=== PATIENT | male | born 1965 | race Caucasian/White ===

== ENCOUNTER 2017-01-28 10:46 | Emergency (ER) | payer MEDICAID, OTHER ==
[~2017-01-28] VITALS: Ht 167.6 cm; Wt 76.6 kg
[~2017-01-28 10:46] MED LIST: BUPR150T13 PO; MELO7.5T31 PO; SIMV20TA3 PO
[2017-01-28 12:59] LABS: HEMATOCRIT 45.2 % (39.2-51.8); HEMOGLOBIN 15.2 g/dL (13.7-18.0); WHITE BLOOD COUNT 9.8 x10^3/uL (3.4-10)
[2017-01-28] MEDS ORDERED: ONDANSETRON 2MG/ML, 2ML IVPush ONE (13:00)
[2017-01-28] MEDS ORDERED: SODIUM CHLORIDE 0.9% 1,000ML IVBOLUS ONE (13:00)
[2017-01-28] MEDS ORDERED: SODIUM CHLORIDE FLUSH 10ML SYR IVF ONE (13:00)
[2017-01-28 13:12] LABS: ASPARTATE AMINO TRANSFERASE 20 U/L (15-37); BLOOD UREA NITROGEN 10 mg/dL (7-18)
[2017-01-28] MEDS ORDERED: ONDANSETRON 2MG/ML, 2ML ONE (14:52)
[2017-01-28 15:36] VITALS: BP 130/89
== END 2017-01-28 15:39 | disposition home or self-care (01) ==
LOC: ED 13:10
DX: R63.1 Polydipsia (principal); I10 Essential (primary) hypertension; Z87.891 Personal history of nicotine dependence
CPT/HCPCS: 36415; 71010; 80053; 81003; 82962; 83690; 85025; 93005; 96361; 96374; 99285; J2405; J7030

== ENCOUNTER 2017-06-15 15:48 | Emergency (ER) | payer OTHER ==
[~2017-06-15] VITALS: Ht 152.4 cm; Wt 79.6 kg
[2017-06-15 15:49] VITALS: BP 137/79
[2017-06-15 16:24] LABS: BASOPHILS # (AUTO) 0.06 x10^3/uL (0-0.1); BASOPHILS % (AUTO) 1 % (0-1); EOSINOPHILS # (AUTO) 0.51 x10^3/uL (0-0.4); EOSINOPHILS % (AUTO) 5 % (1-7); LYMPHOCYTES # (AUTO) 3.53 x10^3/uL (1-3.4); LYMPHOCYTES % (AUTO) 32 % (22-44); MD NO; MEAN CORPUSCULAR HGB CONC 33.6 g/dL (33.2-36.2); MEAN CORPUSCULAR VOLUME 92.3 fL (81-97); MEAN PLATELET VOLUME 8.2 fL (7.4-10.4); MONOCYTES # (AUTO) 0.79 x10^3/uL (0.2-0.8); MONOCYTES % (AUTO) 7 % (2-9); NEUTROPHILS # (AUTO) 6.19 x10^3/uL (1.8-6.8); NEUTROPHILS % (AUTO) 56 % (42-75); PLATELET COUNT 243 x10^3/uL (130-400); RED BLOOD COUNT 4.77 x10^6/uL (4.38-5.82); RED CELL DISTRIBUTION WIDTH 14.3 % (9.4-14.8)
[2017-06-15 16:34] LABS: ALBUMIN 3.5 g/dL (3.4-5.0); ANION GAP 7 mmol/L (5-15); CALCIUM 8.5 mg/dL (8.5-10.1); CHLORIDE 110 mmol/L (98-107); CREATININE 0.95 mg/dL (0.7-1.3)
== END 2017-06-15 17:08 | disposition home or self-care (01) ==
LOC: ED 16:10
DX: K40.91 Unilateral inguinal hernia, without obstruction or gangrene, recurrent (principal); I10 Essential (primary) hypertension; M54.9 Dorsalgia, unspecified; G89.29 Other chronic pain
CPT/HCPCS: 36415; 80048; 82040; 85025; 99284

== ENCOUNTER 2017-07-06 06:32 | Day surgery (SDC) | payer OTHER ==
[~2017-07-06] VITALS: Ht 172.7 cm; Wt 79.0 kg
[2017-07-06] MEDS ORDERED: EPINEPHRINE 1 MG/ML, 1ML ONE (06:51)
[2017-07-06] MEDS ORDERED: BUPIVACAINE/PF 0.5% ONE (06:51)
[2017-07-06 06:56] VITALS: BP 189/76
[2017-07-06] MEDS ORDERED: LACTATED RINGERS 1,000 ML IV SCH (06:56)
[2017-07-06] MEDS ORDERED: NO MEDICATIONS (07:13)
[2017-07-06] MEDS ORDERED: FENTANYL PF 250 MCG/5ML ONE (08:32)
[2017-07-06] MEDS ORDERED: MIDAZOLAM 1 MG/ML, 2ML ONE (08:32)
[2017-07-06] MEDS ORDERED: DEXAMETHASONE 4 MG/ML, 1ML ONE (09:38)
[2017-07-06] MEDS ORDERED: PROPOFOL 10 MG/ML, 20ML ONE (09:38)
[2017-07-06] MEDS ORDERED: NEOSTIGMINE 1 MG/ML, 10ML ONE (09:38)
[2017-07-06] MEDS ORDERED: SUCCINYLCHOLINE 20 MG/ML, 10ML ONE (09:38)
[2017-07-06] MEDS ORDERED: ROCURONIUM 10 MG/ML,10ML ONE (09:38)
[2017-07-06] MEDS ORDERED: ONDANSETRON 2MG/ML, 2ML ONE (09:38)
[2017-07-06] MEDS ORDERED: GLYCOPYRROLATE 0.2MG/1ML, 5ML ONE (09:38)
[2017-07-06] MEDS ORDERED: CEFAZOLIN 1,000 MG ONE (09:38)
[2017-07-06] MEDS ORDERED: ONDANSETRON 2MG/ML, 2ML IVPush PRN (10:30)
[2017-07-06] MEDS ORDERED: hydrALAzine 20 MG/ML, 1ML IV PRN (10:30)
[2017-07-06] MEDS ORDERED: LABETALOL 5MG/ML, 20ML IV PRN (10:30)
[2017-07-06] MEDS ORDERED: MIDAZOLAM 1 MG/ML, 2ML IV PRN (10:30)
[2017-07-06] MEDS ORDERED: ALBUTEROL/IPRATROPIUM 2.5MG/0.5MG, 3 ML NPPB PRN (10:30)
[2017-07-06] MEDS ORDERED: DIAZEPAM 5 MG/ML, 2ML IVPush PRN (10:30)
[2017-07-06] MEDS ORDERED: MEPERIDINE/PF 25MG/0.5ML IVPush PRN (10:30)
[2017-07-06] MEDS ORDERED: ACETAMINOPHEN 325 MG TABLET PO PRN (10:30)
[2017-07-06] MEDS ORDERED: PROMETHAZINE 25 MG/ML, 1ML IV PRN (10:30)
[2017-07-06] MEDS ORDERED: PROMETHAZINE 12.5 MG SUPP PR PRN (10:30)
[2017-07-06] MEDS ORDERED: HYDROcodone/APAP 7.5-325MG/15ML UDC PO PRN (10:30)
[2017-07-06] MEDS ORDERED: FENTANYL PF 100 MCG/2ML IV PRN (10:30)
[2017-07-06] MEDS ORDERED: EPHEDRINE 50 MG/ML, 1ML IVPush PRN (10:30)
[2017-07-06] MEDS ORDERED: METOPROLOL 1 MG/ML, 5ML IV PRN (10:30)
[2017-07-06] MEDS ORDERED: OXYcodone 5 MG/5 ML ORAL.SOL UDC PO PRN (10:30)
[2017-07-06] MEDS ORDERED: HYDROmorphone 1 MG/ML, 1ML IV PRN (10:30)
[2017-07-06] MEDS ORDERED: FENTANYL PF 100 MCG/2ML ONE (11:01)
[2017-07-06] MEDS ORDERED: ACETAMINOPHEN 650 MG/20.3 ML UDC ONE (11:01)
[2017-07-06] MEDS ORDERED: OXYcodone 5 MG/5 ML ORAL.SOL UDC ONE (11:02)
== END 2017-07-06 13:30 | disposition home or self-care (01) ==
LOC: OUT 06:32
PROVIDERS: ATTEND Colon & Rectal Surgery
DX: K40.20 Bilateral inguinal hernia, without obstruction or gangrene, not specified as recurrent (principal); F17.210 Nicotine dependence, cigarettes, uncomplicated
CPT/HCPCS: 49650; C1727; C1781; J0171; J0330; J0690; J1100; J2250; J2405; J2704; J2710; J3010; J3490; J7120

== ENCOUNTER 2020-09-18 12:54 | Emergency (ER) | payer OTHER ==
[~2020-09-18] VITALS: Ht 167.6 cm; Wt 77.2 kg
[~2020-09-18 12:54] MED LIST changes: +NO MEDICATIONS; +SIMV20TA19 PO; -SIMV20TA3 PO
[2020-09-18 13:54] LABS: BASOPHILS % (AUTO) 1 % (0-1); EOSINOPHILS % (AUTO) 3 % (1-7); LYMPHOCYTES % (AUTO) 21 % (22-44); MEAN CORPUSCULAR HEMOGLOBIN 30.7 pg (27.5-34.5); MEAN CORPUSCULAR HGB CONC 33.5 g/dL (33.2-36.2); MEAN PLATELET VOLUME 8.3 fL (7.4-10.4); MONOCYTES % (AUTO) 8 % (2-9); NEUTROPHILS % (AUTO) 66 % (42-75); PLATELET COUNT 250 x10^3/uL (130-400); RED BLOOD COUNT 4.97 x10^6/uL (4.38-5.82); RED CELL DISTRIBUTION WIDTH 14.9 % (9.4-14.8)
[2020-09-18 13:56] LABS: MD NO
[2020-09-18 14:01] LABS: CALCIUM 8.7 mg/dL (8.5-10.1); CHLORIDE 109 mmol/L (98-107); CREATININE 1.01 mg/dL (0.7-1.3)
[2020-09-18 14:02] LABS: ALANINE AMINOTRANSFERASE 30 U/L (12-78); ALBUMIN 3.6 g/dL (3.4-5.0)
[2020-09-18 14:06] LABS: ALKALINE PHOSPHATASE 91 U/L (45-117); BILIRUBIN,TOTAL 0.3 mg/dL (0.2-1.0); TOTAL PROTEIN 7.8 g/dL (6.4-8.2); TROPONIN I < 0.015 ng/mL (0.000-0.045)
[2020-09-18 14:09] LABS: ANION GAP 7 mmol/L (5-15)
--- NOTE | 2020-09-18 14:46 | NUR ---
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
--- NOTE | 2020-09-18 15:09 | NUR ---
ASSUMED CARE OF PATIENT. PATIENT REPORTS HE HAS BEEN FEELING DIZZY WHILE WALKING AROUND AT WORK. PT ALSO REPORTS HEADACHES RECENTLY. VS STABLE. FAMILY AT BEDSIDE. CARDAIC MONITOR ON. NSR NOTED. CALL LIGHT IN PLACE. WILL CONTINUE TO MONITOR.
--- NOTE | 2020-09-18 15:35 | NUR ---
DR EVANS IN ROOM UPDATING PATIENT
--- NOTE | 2020-09-18 16:14 | NUR ---
PT AMBULATED AROUND [facility] WITH PUSLE OX MONITOR ON. PULSE OX STAYED AT 96% WHILE AMBULATING
--- NOTE | 2020-09-18 17:09 | NUR ---
PT WENT TO CT
--- NOTE | 2020-09-18 17:24 | NUR ---
PT BACK FROM CT. PT RESTING IN ROOM. NO ACUTE DISTRESS NOTED. CALL LIGHT INPLACE. WILL CONTINUE TO MONITOR.
[2020-09-18 17:30] VITALS: BP 152/92
--- NOTE | 2020-09-18 18:00 | NUR ---
DR MALAVE IN ROOM UPDATING PATIENT
== END 2020-09-18 15:59 ==
LOC: ED 15:53
DX: R42 Dizziness and giddiness (principal); R06.00 Dyspnea, unspecified; I10 Essential (primary) hypertension
CPT/HCPCS: 36415; 70450; 71045; 80053; 83880; 84484; 85025; 93005; 99285